=== PATIENT | male | born 1955 | race Caucasian/White ===

== ENCOUNTER 2018-05-15 14:57 | Outpatient (CLI) | payer OTHER ==
--- NOTE | 2018-05-15 15:49 | RAD ---
TWO VIEWS CHEST: 05/15/18 COMPARISON: 08/27/16 HISTORY: Tuberculosis referral. FINDINGS: Pleural fluid. There is no alveolar edema. Heart and mediastinal contours are stable. The lungs appea r hyperinflated. There are numerous coarse area of increased density within bilateral upper lobes with bronchiectatic change and streaky opacity in the left apex and multiple bilateral upper lobe nonspecific pulmonary nodules. Nodular opacities are also noted in the superior segment of bilateral lower lobes, left grea ter than right. This is similar when compared to the 02/16/[address] Of note, chest radiograph per formed 08/27/16 and 04/03/16 demonstrates similar findings. IMPRESSION: Stable appearance of the chest when compared to prior imaging. POS: [facility]
== END 2018-05-15 14:58 | disposition home or self-care (01) ==
LOC: NAV RAD 14:57
PROVIDERS: ATTEND Preventive Medicine Public Health & General Preventive Medicine
DX: A15.9 Respiratory tuberculosis unspecified (principal)
CPT/HCPCS: 71046

== ENCOUNTER 2018-09-23 16:27 | Outpatient (CLI) | payer OTHER ==
--- NOTE | 2018-09-23 17:27 | RAD ---
AP view chest HISTORY: History of tuberculosis, hemoptysis. Comparison made to previous exam from 08/04/2018. Two views chest demonstrate lung parenchymal nodular densities seen in the upper lobes. Volume loss s een in the upper lobes. Findings are compatible with predominantly upper lobe interstitial and airspace opacities compatible with patient's history of tuberculosis. No evidence of pneumothorax see n. IMPRESSION: Predominantly upper lobe densities compatible with patient's history of tuberculosis. Volume loss see n in the upper lobes. No other significant interval changes seen. Transcribed Date/Time: 09/23/2018 5:45 PM
== END 2018-09-23 16:28 | disposition home or self-care (01) ==
LOC: NAV RAD 16:27
PROVIDERS: ATTEND Preventive Medicine Public Health & General Preventive Medicine
DX: A15.0 Tuberculosis of lung (principal)
CPT/HCPCS: 71046

== ENCOUNTER 2018-11-19 16:03 | Outpatient (CLI) | payer OTHER ==
--- NOTE | 2018-11-19 17:25 | RAD ---
CHEST TWO VIEW: 11/19/18 HISTORY: Tuberculosis screening. COMPARISON: Radiograph 09/23/18. FINDINGS: Similar appearance of the reticulonodular opacities and nodules in both upper lobes. Lower lobes are relatively clear. IMPRESSION: Similar examination of the chest. POS: HOME
== END 2018-11-19 16:04 | disposition home or self-care (01) ==
LOC: NAV RAD 16:03
PROVIDERS: ATTEND Preventive Medicine Public Health & General Preventive Medicine
DX: A15.0 Tuberculosis of lung (principal)
CPT/HCPCS: 71046